=== PATIENT | male | born 1935 | race Caucasian/White ===

== ENCOUNTER → 2017-12-13 | Outpatient (CLI) | payer MEDICARE, OTHER ==
[~2017-12-13] MED LIST: ALBU90OI INH; AMOX1XR PO; ASPI81CH PO; ASPI81EC PO; Aspir 8181 MG PO; CALCA500CH PO; CEFU500 PO; CHEMO; CHLO2 PO; CHOL10002 PO; ERGO400 PO; ERGO50000 PO; FAMO20 PO; FLUSAL2505; FLUSAL2505 IH; HYDACE5 PO; HYDR1TAB94 PO; IMBRUVICA140 MG PO; LEVFLO500 PO; NAPR500 PO; OLME20 PO; RXHYDACE PO; SACC250C PO; TESTTP TOP; [UNRECOGNIZED DRUG - CODE]; [UNRECOGNIZED DRUG - REMARK]
[2017-12-13 09:12] LABS: BASOPHILS ABSOLUTE AUTO 0.08 K/mm3 (0.00-0.23); BASOPHILS PERCENT AUTO 1 % (0-2); EOSINOPHILS ABSOLUTE AUTO 0.03 K/mm3 (0.00-0.68); EOSINOPHILS PERCENT AUTO 0 % (0-6); Hematocrit 43.4 % (37.0-53.0); Hemoglobin 14.8 g/dL (13.5-17.5); IMMATURE GRAN ABSOLUTE AUTO 0.09 K/mm3 (0.00-0.10); IMMATURE GRAN PERCENT AUTO 1 % (0-1); LYMPHOCYTES ABSOLUTE AUTO 1.06 K/mm3 (0.84-5.20); LYMPHOCYTES PERCENT AUTO 11 % (21-46); MONOCYTES ABSOLUTE AUTO 1.02 K/mm3 (0.16-1.47); MONOCYTES PERCENT AUTO 11 % (4-13); Mean Corpuscular HGB 31.2 pg (26.0-34.0); Mean Corpuscular HGB Conc 34.1 g/dL (31.5-36.5); Mean Corpuscular Volume 91 fL (80-100); Mean Platelet Volume 11.7 fL (9.1-12.4); NEUTROPHILS ABSOLUTE AUTO 7.23 K/mm3 (1.96-9.15); NEUTROPHILS PERCENT AUTO 76 % (41-73); Platelet Count 223 K/mm3 (150-400); RDW Coefficient Variation 13.3 % (11.7-14.2); RDW Standard Deviation 45.3 fL (35.1-46.3); Red Blood Cell Count 4.75 M/mm3 (4.30-5.90); White Blood Cell Count 9.51 K/mm3 (4.00-11.30)
[2017-12-13 09:24] LABS: Anion Gap 8 mmol/L (6-16); Blood Urea Nitrogen 22 mg/dL (8-24); CO2, Blood 31 mmol/L (21-32); Calcium, Blood 8.7 mg/dL (8.5-10.1); Chloride, Blood 101 mmol/L (98-108); Glomerular Filtration Rate 32 (60-); Glucose, Blood 85 mg/dL (70-99); Potassium, Blood 3.6 mmol/L (3.5-5.5); Sodium, Blood 140 mmol/L (136-145); Troponin I <0.017 ng/mL (0.000-0.040)
== END | disposition home or self-care (01) ==
LOC: LAB SHORT 09:04 → LAB EV 09:04
PROVIDERS: Family Medicine
DX: R07.81 Pleurodynia (principal)
CPT/HCPCS: 80048; 83880; 84484; 85025; 85379

== ENCOUNTER → 2017-12-26 | Outpatient (CLI) | payer MEDICARE, OTHER | LOC: LAB SHORT 12:06 → PLD 12:06 | DX: D48.5 Neoplasm of uncertain behavior of skin (principal) | CPT/HCPCS: 88305 ==

== ENCOUNTER 2018-03-16 07:47 | Emergency (ER) | payer MEDICARE, OTHER ==
[~2018-03-16] VITALS: Ht 177.8 cm; Wt 77.1 kg
[2018-03-16] MEDS ORDERED: WARF5 PO (09:15)
[2018-03-16] MEDS ORDERED: METO25ER PO (09:15)
[2018-03-16] MEDS ORDERED: TRIA50 PO (09:15)
[2018-03-16 09:24] LABS: BASOPHILS ABSOLUTE AUTO 0.07 K/mm3 (0.00-0.23); BASOPHILS PERCENT AUTO 1 % (0-2); EOSINOPHILS ABSOLUTE AUTO 0.03 K/mm3 (0.00-0.68); EOSINOPHILS PERCENT AUTO 0 % (0-6); Hematocrit 38.9 % (37.0-53.0); IMMATURE GRAN ABSOLUTE AUTO 0.08 K/mm3 (0.00-0.10); IMMATURE GRAN PERCENT AUTO 1 % (0-1); LYMPHOCYTES ABSOLUTE AUTO 0.45 K/mm3 (0.84-5.20); LYMPHOCYTES PERCENT AUTO 5 % (21-46); MONOCYTES ABSOLUTE AUTO 1.27 K/mm3 (0.16-1.47); MONOCYTES PERCENT AUTO 15 % (4-13); Mean Corpuscular HGB Conc 33.4 g/dL (31.5-36.5); Mean Corpuscular Volume 87 fL (80-100); Mean Platelet Volume 11.4 fL (9.1-12.4); NEUTROPHILS ABSOLUTE AUTO 6.65 K/mm3 (1.96-9.15); NEUTROPHILS PERCENT AUTO 78 % (41-73); Platelet Count 268 K/mm3 (150-400); RDW Coefficient Variation 13.4 % (11.7-14.2); RDW Standard Deviation 42.6 fL (35.1-46.3); Red Blood Cell Count 4.48 M/mm3 (4.30-5.90); White Blood Cell Count 8.55 K/mm3 (4.00-11.30)
[2018-03-16 09:39] LABS: International Normalized Ratio 3.45; Prothrombin Time Results 33.1 Sec (9.7-11.5)
[2018-03-16 09:42] LABS: Albumin, Blood 2.5 g/dL (3.4-5.0); Albumin/Globulin Ratio 0.6 (0.8-1.8); Bilirubin, Total 0.7 mg/dL (0.1-1.0); Bun/Creatinine Ratio 12.1 (12.0-20.0); Calcium, Blood 8.1 mg/dL (8.5-10.1); Creatinine, Blood 1.9 mg/dL (0.60-1.20); Globulin, Blood 4.1 g/dL (2.2-4.0); Magnesium, Blood 2.4 mg/dL (1.6-2.4); Potassium, Blood 3.9 mmol/L (3.5-5.5); Total Protein, Blood 6.6 g/dL (6.4-8.2)
[2018-03-16] MEDS ORDERED: Lasix20 MG PO (14:20)
[2018-03-16] MEDS ORDERED: CORICIDIN HBP PO (14:20)
== END 2018-03-16 14:35 | disposition home or self-care (01) ==
LOC: ER 07:47
PROVIDERS: Emergency Medicine
DX: J90 Pleural effusion, not elsewhere classified (principal); Z79.899 Other long term (current) drug therapy; Z79.82 Long term (current) use of aspirin
CPT/HCPCS: 32555; 36415; 36430; 71045; 71046; 71250; 80053; 83735; 83880; 85025; 85610; 86900; 86901; 99284; J7030; P9059

== ENCOUNTER → 2018-03-27 | Outpatient (CLI) | payer MEDICARE, OTHER ==
[~2018-03-27] MED LIST changes: +CORICIDIN HBP PO; +Lasix20 MG PO; +METO25ER PO; +TRIA50 PO; +WARF5 PO
== END | disposition home or self-care (01) ==
LOC: LAB EV 08:40
DX: J44.1 Chronic obstructive pulmonary disease with (acute) exacerbation (principal)
CPT/HCPCS: 87070; 87205

== ENCOUNTER 2018-04-01 12:21 | Day surgery (SDC) | payer MEDICARE, OTHER ==
[2018-04-01 14:15] LABS: Automated BF RBC Count 0.278 M/mm3 (0-0); Automated BF WBC Count 0.812 K/mm3 (0-999); Body Fluid WBC Count 812 /mm3 (0-999); RBC Count, Body Fluid 278000 /mm3 (0-0)
[2018-04-01 14:22] LABS: Glucose, Body Fluid 92 mg/dL; Lactate Dehydrogenase, Body Fl 209 U/L; Protein, Body Fluid 3.8 g/dL
[2018-04-01 14:30] LABS: pH, Body Fluid 8.2
[2018-04-01 14:31] LABS: Appearance, Body Fluid Bloody (Clear); Color, Body Fluid Red (None-Yellow)
[2018-04-01 15:56] LABS: Total Cell Count, Body Fluid 100
== END 2018-04-01 14:14 | disposition home or self-care (01) ==
LOC: ORSCMMR 12:21 → ORD 12:30 → ORSCMMR 12:30
PROVIDERS: Internal Medicine Critical Care Medicine
PROC: 0W9B3ZZ Drainage of Left Pleural Cavity, Percutaneous Approach (ICD-10-PCS; principal; 2018-04-01 12:30)
DX: J90 Pleural effusion, not elsewhere classified (principal); I48.91 Unspecified atrial fibrillation; Z87.891 Personal history of nicotine dependence; Z79.899 Other long term (current) drug therapy
CPT/HCPCS: 71045; 82945; 83615; 83986; 84157; 88108; 88305; 89051

== ENCOUNTER → 2018-05-10 | Outpatient (CLI) | payer MEDICARE, OTHER | END | disposition home or self-care (01) | LOC: LAB EV 11:10 | DX: R05 Cough (principal) | CPT/HCPCS: 87070; 87205 ==

== ENCOUNTER 2019-08-20 06:56 | Day surgery (SDC) | payer MEDICARE, OTHER ==
[~2019-08-20] VITALS: Ht 177.8 cm; Wt 96.3 kg
[~2019-08-20 06:56] MED LIST changes: +Dyazide 37.5-21 EACH PO; +PANT40 PO; +THERA-D2000 UNIT PO; +Zocor20 MG PO
--- NOTE | 2019-08-20 07:41 | NUR ---
PT ADMITTED TO [facility]. AGREES WITH PLANNED PROCEDURE. LUNG SOUNDS CLEAR. STATED HE TOLERATED BOWEL PREP AND LAST BM CLEAR YELLOW. LEFT HEARING AID REMOVED. PLACED ON BEDSIDE TABLE IN CUP WITH PT LABEL.
--- NOTE | 2019-08-20 08:06 | NUR ---
08/20/19 0806 TRU SIDDIQUI History, Chart, Medications and Allergies reviewed before start of procedure.3-LEAD EKG REVIEWED WITH PHYSICIAN PRIOR TO START OF PROCEDURE.O2 VIA N/C INTACT THROUGHOUT SEDATION/PROCEDURE. PATIENT DETERMINED TO BE ASA APPROPRIATE FOR PROPOFOL SEDATION PRIOR TO START OF PROCEDURE BY
--- NOTE | 2019-08-20 08:49 | NUR ---
RECIEVED PATIENT AND REPORT FROM TRU SEGURA. PATIENT AWAKE AND TALKING TO STAFF VSS
--- NOTE | 2019-08-20 08:58 | NUR ---
RECIEVED PATIENT VS STABLE DENIES DRINK OR THIRST AWAKE AND TALKING
--- NOTE | 2019-08-20 09:06 | NUR ---
GETTING DRESSED AT THIS TIME REPORTS NO DIZZYNESS AND DENIES NEED FOR DRINK ASSISTING. DISCHARGED AND ESCORTED OUT IN WHEEL CHAIR BY RN.
== END 2019-08-20 23:10 | disposition home or self-care (01) ==
LOC: ORSCMMR 06:56 → ORD 08:00 → ORSCMMR 08:00
PROVIDERS: Internal Medicine Gastroenterology
PROC: 0DBH8ZX Excision of Cecum, Via Natural or Artificial Opening Endoscopic, Diagnostic (ICD-10-PCS; principal; 2019-08-20 08:00)
PROC: 0DBL8ZX Excision of Transverse Colon, Via Natural or Artificial Opening Endoscopic, Diagnostic (ICD-10-PCS; principal; 2019-08-20 08:00)
PROC: 0DBN8ZX Excision of Sigmoid Colon, Via Natural or Artificial Opening Endoscopic, Diagnostic (ICD-10-PCS; principal; 2019-08-20 08:00)
PROC: 0DBC8ZX Excision of Ileocecal Valve, Via Natural or Artificial Opening Endoscopic, Diagnostic (ICD-10-PCS; principal; 2019-08-20 08:00)
DX: K62.5 Hemorrhage of anus and rectum (principal); D12.3 Benign neoplasm of transverse colon; K64.8 Other hemorrhoids; Z80.0 Family history of malignant neoplasm of digestive organs; K21.9 Gastro-esophageal reflux disease without esophagitis; I48.91 Unspecified atrial fibrillation; E78.00 Pure hypercholesterolemia, unspecified; J44.9 Chronic obstructive pulmonary disease, unspecified; Z79.01 Long term (current) use of anticoagulants; Z79.899 Other long term (current) drug therapy
CPT/HCPCS: 88305; J2704; J7120

== ENCOUNTER 2019-09-17 09:27 | Emergency (ER) | payer MEDICARE, OTHER ==
[~2019-09-17] VITALS: Ht 177.8 cm; Wt 93.0 kg
[2019-09-17] MEDS ORDERED: FAMO20 (10:21)
[2019-09-17 10:35] LABS: BASOPHILS PERCENT AUTO 1 % (0-2); EOSINOPHILS ABSOLUTE AUTO 0.24 K/mm3 (0.00-0.68); EOSINOPHILS PERCENT AUTO 2 % (0-6); Hematocrit 45.9 % (37.0-53.0); Hemoglobin 15.1 g/dL (13.5-17.5); IMMATURE GRAN ABSOLUTE AUTO 0.05 K/mm3 (0.00-0.10); IMMATURE GRAN PERCENT AUTO 0 % (0-1); LYMPHOCYTES ABSOLUTE AUTO 2.67 K/mm3 (0.84-5.20); LYMPHOCYTES PERCENT AUTO 23 % (21-46); MONOCYTES ABSOLUTE AUTO 1.34 K/mm3 (0.16-1.47); MONOCYTES PERCENT AUTO 12 % (4-13); Mean Corpuscular HGB 29.4 pg (26.0-34.0); Mean Corpuscular HGB Conc 32.9 g/dL (31.5-36.5); Mean Corpuscular Volume 89 fL (80-100); Mean Platelet Volume 10.1 fL (9.1-12.4); NEUTROPHILS ABSOLUTE AUTO 7.27 K/mm3 (1.96-9.15); NEUTROPHILS PERCENT AUTO 62 % (41-73); Platelet Count 209 K/mm3 (150-400); RDW Coefficient Variation 13.2 % (11.7-14.2); RDW Standard Deviation 43.4 fL (35.1-46.3); Red Blood Cell Count 5.14 M/mm3 (4.30-5.90); White Blood Cell Count 11.67 K/mm3 (4.00-11.30)
[2019-09-17 10:47] LABS: Albumin, Blood 3.4 g/dL (3.4-5.0); Bilirubin, Total 0.8 mg/dL (0.1-1.0); Bun/Creatinine Ratio 16.2 (12.0-20.0); Calcium, Blood 8.8 mg/dL (8.5-10.1); Creatinine, Blood 1.79 mg/dL (0.60-1.20); Globulin, Blood 3.3 g/dL (2.2-4.0); Potassium, Blood 3.9 mmol/L (3.5-5.5); Total Protein, Blood 6.7 g/dL (6.4-8.2)
[2019-09-17 11:00] LABS: International Normalized Ratio 2.04; Prothrombin Time Results 20.3 Sec (9.7-11.5)
[2019-09-17] MEDS ORDERED: HYDACE25S PR (11:23)
== END 2019-09-17 11:49 | disposition home or self-care (01) ==
LOC: ER 09:27
PROVIDERS: Emergency Medicine
DX: K92.2 Gastrointestinal hemorrhage, unspecified (principal); I48.91 Unspecified atrial fibrillation; I50.9 Heart failure, unspecified; C91.11 Chronic lymphocytic leukemia of B-cell type in remission; Z79.01 Long term (current) use of anticoagulants
CPT/HCPCS: 36415; 80053; 85025; 85610; 85730; 86850; 86900; 86901; 93005; 93010; 99283-25

== ENCOUNTER → 2019-11-14 | Outpatient (CLI) | payer MEDICARE, OTHER ==
[~2019-11-14] MED LIST changes: +FAMO20; +HYDACE25S PR
[2019-11-14 10:30] LABS: Hematocrit 43.8 % (37.0-53.0); Hemoglobin 14.7 g/dL (13.5-17.5); Mean Corpuscular HGB 29.8 pg (26.0-34.0); Mean Corpuscular HGB Conc 33.6 g/dL (31.5-36.5); Mean Corpuscular Volume 89 fL (80-100); Mean Platelet Volume 10.6 fL (9.1-12.4); Platelet Count 193 K/mm3 (150-400); RDW Coefficient Variation 13.6 % (11.7-14.2); RDW Standard Deviation 44.1 fL (35.1-46.3); Red Blood Cell Count 4.93 M/mm3 (4.30-5.90); White Blood Cell Count 9.05 K/mm3 (4.00-11.30)
[2019-11-14 10:40] LABS: Albumin, Blood 3.4 g/dL (3.4-5.0); Bilirubin, Total 0.5 mg/dL (0.1-1.0); Bun/Creatinine Ratio 16.7 (12.0-20.0); Calcium, Blood 8.7 mg/dL (8.5-10.1); Creatinine, Blood 1.92 mg/dL (0.60-1.20); Globulin, Blood 3.4 g/dL (2.2-4.0); Potassium, Blood 4.1 mmol/L (3.5-5.5); Total Protein, Blood 6.8 g/dL (6.4-8.2)
[2019-11-14 11:23] LABS: International Normalized Ratio 1.83; Prothrombin Time Results 18.9 Sec (9.7-11.5)
[2019-11-14 11:41] LABS: BASOPHILS ABSOLUTE MAN 0.09 K/mm3 (0.00-0.23); BASOPHILS PERCENT MAN 1 % (0-2); EOSINOPHILS ABSOLUTE MAN 0.09 K/mm3 (0.00-0.68); EOSINOPHILS PERCENT MAN 1 % (0-6); LYMPHOCYTES ABSOLUTE MAN 3.34 K/mm3 (0.84-5.20); LYMPHOCYTES PERCENT MAN 37 % (21-46); MONOCYTES ABSOLUTE MAN 0.81 K/mm3 (0.16-1.47); MONOCYTES PERCENT MAN 9 % (4-13); SEG NEUTROPHILS PERCENT MAN 52 % (41-73); TOTAL CELLS COUNTED 100
== END | disposition home or self-care (01) ==
LOC: LAB SHORT 10:22 → LAB EV 10:22
PROVIDERS: Physician Assistant
DX: Z79.01 Long term (current) use of anticoagulants (principal); Z51.81 Encounter for therapeutic drug level monitoring; K92.2 Gastrointestinal hemorrhage, unspecified
CPT/HCPCS: 80053; 85025; 85610

== ENCOUNTER → 2020-03-18 | Outpatient (CLI) | payer MEDICARE, OTHER ==
[~2020-03-18] MED LIST changes: +OMEP20ER PO; +VENCLEXTA100 MG PO
== END | disposition home or self-care (01) ==
LOC: LAB SHORT 12:08 → PLD 12:08
DX: D04.39 Carcinoma in situ of skin of other parts of face (principal)
CPT/HCPCS: 88305

== ENCOUNTER → 2020-06-28 | Outpatient (CLI) | payer MEDICARE, OTHER | LOC: LAB SHORT 08:02 → PLD 08:02 | DX: C44.622 Squamous cell carcinoma of skin of right upper limb, including shoulder (principal); L82.1 Other seborrheic keratosis | CPT/HCPCS: 88305 ==

== ENCOUNTER → 2020-08-16 | Outpatient (CLI) | payer MEDICARE, OTHER | END | disposition home or self-care (01) | LOC: PLD 08:11 → LAB SHORT 08:11 | DX: D48.5 Neoplasm of uncertain behavior of skin (principal) | CPT/HCPCS: 88305 ==

== ENCOUNTER → 2020-12-21 | Outpatient (CLI) | payer MEDICARE, OTHER | LOC: LAB SHORT 11:02 | DX: D48.5 Neoplasm of uncertain behavior of skin (principal) | CPT/HCPCS: 88305 ==

== ENCOUNTER → 2021-01-26 | Outpatient (CLI) | payer MEDICARE, OTHER ==
[~2021-01-26] MED LIST changes: +CEFD300 PO; +XARELTO20 M1 PO
== END ==
LOC: LAB SHORT 08:34 → LAB 08:34
DX: R05 Cough (principal)
CPT/HCPCS: 87070; 87102; 87106; 87205

== ENCOUNTER 2021-02-05 19:34 | Emergency (ER) | payer MEDICARE, OTHER ==
[~2021-02-05] VITALS: Ht 177.8 cm; Wt 82.1 kg
[~2021-02-05 19:34] MED LIST changes: -CEFD300 PO; -XARELTO20 M1 PO
[2021-02-05] MEDS ORDERED: XARELTO20 M1 PO (20:48)
[2021-02-05 21:29] LABS: BASOPHILS ABSOLUTE AUTO 0.03 K/mm3 (0.00-0.23); BASOPHILS PERCENT AUTO 0 % (0-2); EOSINOPHILS PERCENT AUTO 0 % (0-6); Hemoglobin 13.6 g/dL (13.5-17.5); IMMATURE GRAN ABSOLUTE AUTO 0.06 K/mm3 (0.00-0.10); IMMATURE GRAN PERCENT AUTO 1 % (0-1); LYMPHOCYTES ABSOLUTE AUTO 0.51 K/mm3 (0.84-5.20); LYMPHOCYTES PERCENT AUTO 4 % (21-46); MONOCYTES ABSOLUTE AUTO 1.28 K/mm3 (0.16-1.47); MONOCYTES PERCENT AUTO 10 % (4-13); Mean Corpuscular HGB Conc 33.2 g/dL (31.5-36.5); Mean Corpuscular Volume 93 fL (80-100); Mean Platelet Volume 9.9 fL (9.1-12.4); NEUTROPHILS ABSOLUTE AUTO 11.18 K/mm3 (1.96-9.15); NEUTROPHILS PERCENT AUTO 86 % (41-73); Platelet Count 177 K/mm3 (150-400); RDW Coefficient Variation 13.1 % (11.7-14.2); RDW Standard Deviation 44.9 fL (35.1-46.3); Red Blood Cell Count 4.39 M/mm3 (4.30-5.90); White Blood Cell Count 13.06 K/mm3 (4.00-11.30)
[2021-02-05 21:49] LABS: Albumin, Blood 3.4 g/dL (3.4-5.0); Albumin/Globulin Ratio 1.1 (0.8-1.8); Bilirubin, Total 0.9 mg/dL (0.1-1.0); Bun/Creatinine Ratio 12.8 (12.0-20.0); Calcium, Blood 8.4 mg/dL (8.5-10.1); Creatinine, Blood 1.87 mg/dL (0.60-1.20); Globulin, Blood 3.2 g/dL (2.2-4.0); Potassium, Blood 3.9 mmol/L (3.5-5.5); Total Protein, Blood 6.6 g/dL (6.4-8.2)
[2021-02-05 22:18] LABS: Source, Urine Clean Catch
[2021-02-05 22:22] LABS: Bilirubin, Urine Neg (Neg); Blood, Urine 2+ (Neg); Glucose Qualitative, Urine Neg (Neg); Ketones, Urine Neg (Neg); Leukocyte Esterase, Urine Neg (Neg); Nitrite, Urine Neg (Neg); Protein, Urine Neg (Neg); Specific Gravity, Urine 1.005 (1.003-1.022); Urobilinogen, Urine NORM (Normal)
[2021-02-05 22:33] LABS: Appearance, Urine Clear (Clear); Color, Urine Yellow (P-Yellow)
[2021-02-05 22:34] LABS: Red Blood Cells, Urine 0-2 /hpf (0-2); White Blood Cells, Urine Not Seen /hpf (0-5)
[2021-02-05 22:35] LABS: Bacteria Not Seen /hpf; Squamous Epithelial Cells Not Seen /hpf (Few)
[2021-02-05] MEDS ORDERED: CEFD300 PO ×2 (22:54→23:06)
== END 2021-02-05 23:09 | disposition home or self-care (01) ==
LOC: ER 19:34
PROVIDERS: Emergency Medicine
DX: J18.9 Pneumonia, unspecified organism (principal); R41.0 Disorientation, unspecified; I48.91 Unspecified atrial fibrillation; I50.9 Heart failure, unspecified; Z79.01 Long term (current) use of anticoagulants; Z79.899 Other long term (current) drug therapy; Z87.891 Personal history of nicotine dependence
CPT/HCPCS: 36415; 71045; 80053; 81001; 84145; 85025; 93005; 93010; 96374; 99285-25; J0696

== ENCOUNTER 2021-12-29 09:50 | Emergency (ER) | payer MEDICARE, OTHER ==
[~2021-12-29] VITALS: Ht 177.8 cm; Wt 81.7 kg
[~2021-12-29 09:50] MED LIST changes: +CEFD300 PO; +XARELTO20 M1 PO
[2021-12-29] MEDS ORDERED: MIRALAX17 GM (10:12)
[2021-12-29] MEDS ORDERED: Flomax0.4 MG (10:12)
[2021-12-29] MEDS ORDERED: FLUT.05NI (10:12)
[2021-12-29] MEDS ORDERED: CLEM1.34 (10:13)
[2021-12-29 10:25] LABS: BASOPHILS ABSOLUTE AUTO 0.02 K/mm3 (0.00-0.23); BASOPHILS PERCENT AUTO 0 % (0-2); EOSINOPHILS PERCENT AUTO 0 % (0-6); Hematocrit 40.4 % (37.0-53.0); Hemoglobin 13.7 g/dL (13.5-17.5); IMMATURE GRAN ABSOLUTE AUTO 0.02 K/mm3 (0.00-0.10); IMMATURE GRAN PERCENT AUTO 0 % (0-1); LYMPHOCYTES ABSOLUTE AUTO 0.33 K/mm3 (0.84-5.20); LYMPHOCYTES PERCENT AUTO 6 % (21-46); MONOCYTES PERCENT AUTO 12 % (4-13); Mean Corpuscular HGB 32.5 pg (26.0-34.0); Mean Corpuscular HGB Conc 33.9 g/dL (31.5-36.5); Mean Corpuscular Volume 96 fL (80-100); Mean Platelet Volume 10.5 fL (9.1-12.4); NEUTROPHILS ABSOLUTE AUTO 4.63 K/mm3 (1.96-9.15); NEUTROPHILS PERCENT AUTO 81 % (41-73); Platelet Count 169 K/mm3 (150-400); RDW Standard Deviation 45.8 fL (35.1-46.3); Red Blood Cell Count 4.21 M/mm3 (4.30-5.90)
[2021-12-29 10:38] LABS: Albumin, Blood 3.3 g/dL (3.4-5.0); Bilirubin, Total 0.6 mg/dL (0.1-1.0); Bun/Creatinine Ratio 11.9 (12.0-20.0); Calcium, Blood 8.4 mg/dL (8.5-10.1); Creatinine, Blood 2.02 mg/dL (0.60-1.20); Globulin, Blood 3.3 g/dL (2.2-4.0); Magnesium, Blood 1.9 mg/dL (1.6-2.4); Total Protein, Blood 6.6 g/dL (6.4-8.2)
[2021-12-29 10:54] LABS: Source, Urine Clean Catch
[2021-12-29 11:04] LABS: Appearance, Urine Clear (Clear); Bilirubin, Urine Neg (Neg); Blood, Urine 4+ (Neg); Color, Urine Yellow (P-Yellow); Glucose Qualitative, Urine Neg (Neg); Ketones, Urine Neg (Neg); Leukocyte Esterase, Urine Neg (Neg); Nitrite, Urine Neg (Neg); Protein, Urine 1+ (Neg); Urobilinogen, Urine NORM (Normal)
[2021-12-29 11:18] LABS: Bacteria Rare /hpf; Hyaline Casts 0-2 /lpf (0-2); Red Blood Cells, Urine 0-2 /hpf (0-2); Squamous Epithelial Cells Rare /hpf (Few); White Blood Cells, Urine 0-2 /hpf (0-5)
[2021-12-29 11:28] LABS: Influenza A, PCR NEGATIVE (NEGATIVE); Influenza B, PCR NEGATIVE (NEGATIVE); Resp Syncytial Virus, PCR NEGATIVE (NEGATIVE)
[2021-12-29 11:36] LABS: SARS-Cov-2 (COVID-19) PCR, MMC POSITIVE (NEGATIVE)
[2021-12-29] MEDS ORDERED: ONDA4ODT MM (13:32)
[2021-12-29] MEDS ORDERED: Zithromax250 MG PO (13:33)
== END 2021-12-29 14:07 | disposition home or self-care (01) ==
LOC: ER 09:50
PROVIDERS: Emergency Medicine
DX: U07.1 COVID-19 (principal); J12.82 Pneumonia due to coronavirus disease 2019; Z88.2 Allergy status to sulfonamides; Z79.899 Other long term (current) drug therapy; I48.91 Unspecified atrial fibrillation; J44.0 Chronic obstructive pulmonary disease with (acute) lower respiratory infection; I11.0 Hypertensive heart disease with heart failure; I50.9 Heart failure, unspecified
CPT/HCPCS: 0241U; 36415; 70450; 71045; 73080; 80053; 81001; 83605; 83735; 85025; 93005; 93010; 99285-25; A9270

== ENCOUNTER → 2022-01-30 | Outpatient (CLI) | payer MEDICARE, OTHER ==
[~2022-01-30] MED LIST changes: +CLEM1.34; +FLUT.05NI; +Flomax0.4 MG; +MIRALAX17 GM; +ONDA4ODT MM; +Zithromax250 MG PO
[2022-01-30 12:32] LABS: BASOPHILS ABSOLUTE AUTO 0.01 K/mm3 (0.00-0.23); BASOPHILS PERCENT AUTO 0 % (0-2); EOSINOPHILS PERCENT AUTO 0 % (0-6); Hematocrit 37.2 % (37.0-53.0); Hemoglobin 12.5 g/dL (13.5-17.5); IMMATURE GRAN ABSOLUTE AUTO 0.05 K/mm3 (0.00-0.10); IMMATURE GRAN PERCENT AUTO 1 % (0-1); LYMPHOCYTES ABSOLUTE AUTO 0.29 K/mm3 (0.84-5.20); LYMPHOCYTES PERCENT AUTO 4 % (21-46); MONOCYTES ABSOLUTE AUTO 0.24 K/mm3 (0.16-1.47); MONOCYTES PERCENT AUTO 3 % (4-13); Mean Corpuscular HGB 31.5 pg (26.0-34.0); Mean Corpuscular HGB Conc 33.6 g/dL (31.5-36.5); Mean Corpuscular Volume 94 fL (80-100); Mean Platelet Volume 10.4 fL (9.1-12.4); NEUTROPHILS ABSOLUTE AUTO 6.43 K/mm3 (1.96-9.15); NEUTROPHILS PERCENT AUTO 92 % (41-73); Platelet Count 179 K/mm3 (150-400); RDW Standard Deviation 44.9 fL (35.1-46.3); Red Blood Cell Count 3.97 M/mm3 (4.30-5.90); White Blood Cell Count 7.02 K/mm3 (4.00-11.30)
[2022-01-30 12:41] LABS: Albumin, Blood 2.3 g/dL (3.4-5.0); Albumin/Globulin Ratio 0.5 (0.8-1.8); Bilirubin, Total 0.8 mg/dL (0.1-1.0); Bun/Creatinine Ratio 20.1 (12.0-20.0); Calcium, Blood 9.1 mg/dL (8.5-10.1); Creatinine, Blood 2.68 mg/dL (0.60-1.20); Globulin, Blood 4.7 g/dL (2.2-4.0); Potassium, Blood 3.7 mmol/L (3.5-5.5)
== END | disposition home or self-care (01) ==
LOC: LAB SHORT 12:30 → LAB 12:30
PROVIDERS: Family Medicine
DX: U07.1 COVID-19 (principal); J12.82 Pneumonia due to coronavirus disease 2019
CPT/HCPCS: 80053; 85025

== ENCOUNTER 2022-02-04 18:29 | Inpatient (IN) | payer MEDICARE, OTHER ==
[~2022-02-04] VITALS: Ht 175.3 cm; Wt 81.7 kg
[~2022-02-04 18:29] MED LIST changes: -CLEM1.34; +CLEM1.34 PO; -Flomax0.4 MG; +Flomax0.4 MG PO; -MIRALAX17 GM; +MIRALAX17 GM PO
[2022-02-04 18:52] LABS: BASOPHILS ABSOLUTE AUTO 0.02 K/mm3 (0.00-0.23); BASOPHILS PERCENT AUTO 0 % (0-2); EOSINOPHILS PERCENT AUTO 0 % (0-6); Hematocrit 41.8 % (37.0-53.0); Hemoglobin 13.8 g/dL (13.5-17.5); IMMATURE GRAN ABSOLUTE AUTO 0.11 K/mm3 (0.00-0.10); IMMATURE GRAN PERCENT AUTO 1 % (0-1); LYMPHOCYTES ABSOLUTE AUTO 0.15 K/mm3 (0.84-5.20); LYMPHOCYTES PERCENT AUTO 2 % (21-46); MONOCYTES ABSOLUTE AUTO 0.38 K/mm3 (0.16-1.47); MONOCYTES PERCENT AUTO 4 % (4-13); Mean Corpuscular HGB 30.9 pg (26.0-34.0); Mean Corpuscular Volume 94 fL (80-100); Mean Platelet Volume 12.8 fL (9.1-12.4); NEUTROPHILS ABSOLUTE AUTO 9.17 K/mm3 (1.96-9.15); NEUTROPHILS PERCENT AUTO 93 % (41-73); Platelet Count 225 K/mm3 (150-400); RDW Coefficient Variation 13.2 % (11.7-14.2); RDW Standard Deviation 45.1 fL (35.1-46.3); Red Blood Cell Count 4.47 M/mm3 (4.30-5.90); White Blood Cell Count 9.83 K/mm3 (4.00-11.30)
[2022-02-04 19:07] LABS: Alanine Aminotransfer (ALT/SGP 15 U/L (12-78); Albumin, Blood 2.2 g/dL (3.4-5.0); Albumin/Globulin Ratio 0.5 (0.8-1.8); Alk Phos 63 U/L (50-136); Anion Gap 7 mmol/L (6-16); Aspartate Aminotrans (AST/SGOT 30 U/L (12-37); Bilirubin, Total 0.7 mg/dL (0.1-1.0); Blood Urea Nitrogen 101 mg/dL (8-24); Bun/Creatinine Ratio 41.4 (12.0-20.0); CO2, Blood 24 mmol/L (21-32); Calcium, Blood 8.9 mg/dL (8.5-10.1); Chloride, Blood 119 mmol/L (98-108); Creatinine, Blood 2.44 mg/dL (0.60-1.20); Ethanol (Alcohol), Blood, Med <3 mg/dL; Globulin, Blood 4.1 g/dL (2.2-4.0); Glomerular Filtration Rate 25 (60-); Glucose, Blood 127 mg/dL (70-99); Potassium, Blood 4.7 mmol/L (3.5-5.5); Sodium, Blood 150 mmol/L (136-145); Total Protein, Blood 6.3 g/dL (6.4-8.2)
[2022-02-04 20:16] LABS: International Normalized Ratio 1.23; Prothrombin Time Results 12.7 Sec (9.7-11.5)
[2022-02-04 22:03] LABS: Source, Urine Condom Cath
[2022-02-04 22:08] LABS: Bilirubin, Urine Neg (Neg); Blood, Urine 1+ (Neg); Glucose Qualitative, Urine Neg (Neg); Ketones, Urine Neg (Neg); Leukocyte Esterase, Urine Neg (Neg); Nitrite, Urine Neg (Neg); Protein, Urine 2+ (Neg); Specific Gravity, Urine 1.015 (1.003-1.022); Urobilinogen, Urine NORM (Normal)
[2022-02-04 22:20] LABS: Amorphous Light (0-Heavy); Appearance, Urine Hazy (Clear); Bacteria Few /hpf; Color, Urine Yellow (P-Yellow); Granular Casts 25-50 /lpf (0); Red Blood Cells, Urine 0-2 /hpf (0-2); Squamous Epithelial Cells Not Seen /hpf (Few); White Blood Cells, Urine 0-2 /hpf (0-5)
[2022-02-04 22:21] LABS: U Amphetamine Screen Not Detected; U Barbituate Screen Not Detected; U Benzodiazapine Screen Not Detected; U Buprenorphine Screen Not Detected; U Cannabinoids Screen Not Detected; U Cocaine Screen Not Detected; U Methadone Screen Not Detected; U Methamphetamine Screen Not Detected; U Opiates Screen Not Detected; U Oxycodone Screen Not Detected; U Phencyclidine Screen Not Detected; U Propoxyphene Screen Not Detected
[2022-02-04 23:50] LABS: Influenza A, PCR NEGATIVE (NEGATIVE); Influenza B, PCR NEGATIVE (NEGATIVE); Resp Syncytial Virus, PCR NEGATIVE (NEGATIVE)
[2022-02-05 00:04] LABS: SARS-Cov-2 (COVID-19) PCR, MMC POSITIVE (NEGATIVE)
[2022-02-05 04:59] LABS: Bun/Creatinine Ratio 38.2 (12.0-20.0); Calcium, Blood 8.7 mg/dL (8.5-10.1); Creatinine, Blood 2.59 mg/dL (0.60-1.20); Potassium, Blood 3.8 mmol/L (3.5-5.5)
--- NOTE | 2022-02-05 06:47 | NUR ---
SHIFT SUMMARY PT WAS A NEW ADMIT DURING THE NIGHT, ARRIVING ON THE FLOOR AT 0058. HE IS AN 86 Y/O MALE, ADMITTED FOR ACUTE RESPIRATORY FAILURE AFTER HE WAS FOUND UNRESPONSIVE AT HOME. PT O2 NEEDS INCREASED FROM 2L TO 6L, WITH SHORT PERIODS OF DESATTING TO THE 80S. PT DID WAKE UP DURING THE NIGHT, AND WAS ABLE TO FOLLOW SIMPLE COMMANDS AND ANSWER YES OR NO QUESTIONS. PT IS A&O X SELF, VERY FORGETFUL AND [place]. CONDOM CATH PLACED AT ADMIT, THEN REMOVED BY THE PT THIS AM. 1PA TO BSC. NO C/O ACUTE PAIN OR DISTRESS. VITAL SIGNS STABLE. NO ACUTE CHANGES IN PT CONDITION NOTED DURING THE NIGHT. WILL CONTINUE TO MONITOR AND TREAT PER EMAR UNTIL HAND OFF TO DAY SHIFT RN.
--- NOTE | 2022-02-05 10:52 | NUR ---
Met with Pt's spouse Catherine and reviewed plan of care. Engaged in therapeutic discussion regarding advanced care planning, code status, and considering goals of care such as comfort care and hospice. Gentle education on disease process including trajectory of disease. Tamyy Catherine appeared to be in some denial but after continued conversation she appeared to be a little more accepting stating "that's what my daughter who has been a nurse for 30 years has been telling us". Offered therapeutic listening and answered questions. Discussed code status. Educated on life sustaining treatments including risk factors and implications of CPR. Catherine reports Pt completed an AD at [facility] and thinks his wishes are for DNR but would like to confirm this. Continued therapeutic conversation regarding goals of care including considering goals and values. Discussed focusing on comfort care and hospice as an option. Catherine reports she will have conversation with Pt and family regarding this. Confirmed with Dr Magana of Pt having an AD but does not have POLST. Catherine reports Pt would be in agreement with a code status of DNR. Continued therapeutic listening. Catherine reports she and Pt have 2 children, one daughter and one son. Catherine and Pt have been for 65 years this August. Catherine reports daughter's is fighting metastatic prostate cancer that has spread to the bone and possibly brain. Continued therapeutic listening. Ended visit to allow Catherine to visit with Pt. Spoke with Dr Magana and discussed case. Placed DNR order in [facility] per V/O from Dr Magana. Palliative Care will remain available for therapeutic visits.
--- NOTE | 2022-02-05 12:02 | NUR ---
ASPIRATION RISK PT APPEARED TO BE ASPIRATING SMALL AMOUNTS OF WATER WHEN HIS WAS HELPING HIM DRINK SOME WATER. AND PATIENT EDUCATED ON RISK OF ASPIRATION WHICH IS INCREASED WHEN THE PATIENT IS LAYING DOWN MOST OF THE WAY. PT STILL ON 6L O2 AT THIS TIME AND DOES NOT APPEAR TO BE IN ANY DISTRESS. WILL CTM
[2022-02-05 14:49] LABS: Albumin, Blood 1.9 g/dL (3.4-5.0); Albumin/Globulin Ratio 0.5 (0.8-1.8); Bilirubin, Total 0.7 mg/dL (0.1-1.0); Bun/Creatinine Ratio 37.8 (12.0-20.0); Calcium, Blood 8.6 mg/dL (8.5-10.1); Creatinine, Blood 2.46 mg/dL (0.60-1.20); Globulin, Blood 3.8 g/dL (2.2-4.0); Potassium, Blood 3.8 mmol/L (3.5-5.5); Total Protein, Blood 5.7 g/dL (6.4-8.2)
--- NOTE | 2022-02-05 18:19 | NUR ---
SHIFT NOTE PT CODE STATUS CHANGED TO DNR DURING THIS SHIFT. PT'S TALKED W/ DR MELGAR AND W/ PALLIATIVE CARE ABOUT PT'S CARE PLAN MOVING FORWARD. PT HAS SHOWN AN INCREASE IN STRENGTH AND RESPONSIVENESS THROUGHOUT THE SHIFT. PT IS ABLE TO STAND AND ROTATE TO BEDSIDE COMMODE W/ ONE PERSON ASSIST. PT IS EATING SMALL AMOUNTS OF FOOD AND ABLE TO DRINK SMALL AMOUNTS OF FLUID W/ 'S ASSISTANCE. PT IS AN ASPIRATION RISK DUE TO DYSPHAGIA. PT'S HAS BEEN ADVISED TO SIT PT UPRIGHT BEFORE PROVIDING ANY ORAL INTAKE. PT IS CURRENTLY RESTING IN ROOM, EATING DINNER W/ 'S ASSISTANCE. WILL CONTINUE TO MONITOR AND UPDATE NECESSARY.
[2022-02-05] MEDS ORDERED: PRED20 PO (19:53)
[2022-02-05] MEDS ORDERED: CARBIDOPA-LEVO1 EA21 PO (19:55)
--- NOTE | 2022-02-06 04:39 | NUR ---
PT A/0X2, ALERT TO SELF AND . PT VERY [place] WHEN ASKED WHERE HE WAS HE STATED HOME, UNSURE OF THE DATE. PT CONT/INCONT OF URINE. ENDORSED IN REPORT THAT PT WAS NOTED TO BE COUGHING WHEN EATING AND DRINKING. ST NOT ABLE TO ASSESS PT YET, PT MADE NPO UNTIL ST ABLE TO ASSESS PT. PT NOTED TO BE IMPULSIVE AT TIMES HOWEVER AT THIS TIME REDIRECTABLE. ON 5L O2 AND NOTED TO AT TIMES REMOVE. PT TURNED Q2H AT TIMES AND OTHERS REFUSED. NO OTHER CHANGES NOTED. PT REMAINED ON ISOLATION FOR COVID.
--- NOTE | 2022-02-06 08:00 | NUR ---
pt laying in bed, not very responsive to staff, speech is garbled, did figure out he needed to void and was able to place the urinal for him, speech in room doing an eval, he will be npo at this time, he sounds wet, weak cough effort, confused, but attempts to be cooperative with care, lungs are dim t/o, resp even and unlabored at rest, currently on 5 liters 02 via n/c, hrir, no edema ntoed, ppp faint, cap refill<3sec, vs stable afebrile, iv site is clear and patent, infusing d51/2 at this time, will stop after this liter, btx4, abd flat soft nontender, voids via urinal and incont, attends in place, skin c/w/d weak, call light in reach.
[2022-02-06 08:01] LABS: BASOPHILS ABSOLUTE AUTO 0.02 K/mm3 (0.00-0.23); BASOPHILS PERCENT AUTO 0 % (0-2); EOSINOPHILS PERCENT AUTO 0 % (0-6); Hematocrit 40.9 % (37.0-53.0); Hemoglobin 12.5 g/dL (13.5-17.5); IMMATURE GRAN ABSOLUTE AUTO 0.11 K/mm3 (0.00-0.10); IMMATURE GRAN PERCENT AUTO 1 % (0-1); LYMPHOCYTES ABSOLUTE AUTO 0.15 K/mm3 (0.84-5.20); LYMPHOCYTES PERCENT AUTO 2 % (21-46); MONOCYTES ABSOLUTE AUTO 0.15 K/mm3 (0.16-1.47); MONOCYTES PERCENT AUTO 2 % (4-13); Mean Corpuscular HGB Conc 30.6 g/dL (31.5-36.5); Mean Corpuscular Volume 98 fL (80-100); Mean Platelet Volume 11.4 fL (9.1-12.4); NEUTROPHILS ABSOLUTE AUTO 8.31 K/mm3 (1.96-9.15); NEUTROPHILS PERCENT AUTO 95 % (41-73); Platelet Count 131 K/mm3 (150-400); RDW Coefficient Variation 13.5 % (11.7-14.2); RDW Standard Deviation 48.5 fL (35.1-46.3); Red Blood Cell Count 4.16 M/mm3 (4.30-5.90); White Blood Cell Count 8.74 K/mm3 (4.00-11.30)
[2022-02-06 08:28] LABS: Albumin, Blood 1.7 g/dL (3.4-5.0); Blood Urea Nitrogen 73 mg/dL (8-24); Bun/Creatinine Ratio 35.8 (12.0-20.0); CO2, Blood 26 mmol/L (21-32); Calcium, Blood 8.4 mg/dL (8.5-10.1); Chloride, Blood 131 mmol/L (98-108); Creatinine, Blood 2.04 mg/dL (0.60-1.20); Glomerular Filtration Rate 31 (60-); Glucose, Blood 123 mg/dL (70-99); Phosphorus, Blood 2.9 mg/dL (2.5-4.9); Potassium, Blood 3.5 mmol/L (3.5-5.5)
[2022-02-06 08:30] LABS: Anion Gap 6 mmol/L (6-16); Sodium, Blood 163 mmol/L (136-145)
--- NOTE | 2022-02-06 11:12 | NUR ---
pt has been transitioned to comfort care, Dr. Magana ordered a duragesic patch, but state he hasn't ever complained of pain, she would like to hold off for now, will place it if he shows signs of pain later, call light in reach.
--- NOTE | 2022-02-06 16:05 | NUR ---
pt has been relaxed this shift, no signs of distress, spouce in room, she doesn't want a comfort cart, states she will let us know if any needs, pt is being turned and changed as needed. call light in reach.
--- NOTE | 2022-02-06 16:54 | NUR ---
Case Conference: Met with pt's Catherine this afternoon after her friends and wrapper hand left. Pt is lying in bed, up aroung a 40 degree angle. Catherine states she is ready to go home for the night. Gave her a copy of "Hard choices for [place] People". She does understand what comfort care is. She has not decided yet if the pt will be placed on comfort Care. But she does state she knows she can't take care of him any longer at home. Palliative to remain involved.
--- NOTE | 2022-02-06 18:26 | NUR ---
pt has been quietly resting in bed, has been awake, mouth swabbed throughout the day. no acute changes this shift. call light in reach.
--- NOTE | 2022-02-06 21:13 | NUR ---
[place] 65 years with covid 19 pneumonia changed to comfort care today. on 5 l nc. personal care done denies acute needs.
--- NOTE | 2022-02-06 23:19 | NUR ---
denies pain or anxiety. Personal care complete continues in isolation for ciovid 19 pneumonia
--- NOTE | 2022-02-07 06:41 | NUR ---
86 year old Male with covid 19 was changed to comfort care yesterday. He has repeatedly removed his oxygen so currently appears hypoxic & dusky but comfortable. Medicated for pain x 2 with 10 mg roxinol sl with helpful effect. incontinent of urine several times turned side to side repositioned. Continues on comfort care.
--- NOTE | 2022-02-07 08:47 | NUR ---
PT RESTING COMFORTABLEY IN BED. IS PRESENT AND VISITING WITH PT.
--- NOTE | 2022-02-07 10:36 | NUR ---
PT WAS GIVEN MORPHRINE, REPOSTIONED AND BRIEF CHANGED. PT RECEVIED MOUTH CARE. PT RESTING BIN BED WITH PRESENT.
--- NOTE | 2022-02-07 12:19 | NUR ---
PT HAD A TENSE EXPRESSION. PT WAS GIVEN ATIVAN 1MG IV. APPLIED LOTION TO THE PT FEET AND ARMS. PT RESTING IN BED.
--- NOTE | 2022-02-07 14:16 | NUR ---
Comfort Care Visit Pt resting in bed upon arrival. Pt is non verbal. Pt appears frail and weak. Facial expressions and body posture appear tense suggusting possible discomfort. Pt's spouse Catherine at bedside. Catherine expresses concerns regarding medications. Gentle education on the importance of comfort. Reviewed comfort medications and S/S Pt is experiencing. Catherine appears to be in agreement with offering comfort medication. Spoke with Primary RN and Tile Trimmer. Discussed case and reviewed comfort medications. Palliative Care will remain available.
--- NOTE | 2022-02-07 14:56 | NUR ---
PT WAS REPOSITIONED, CHANGED, AND GIVEN PAIN MEDICATION ACCORDING TO THE EMAR PROTOCOL. PT'S IS PRESENTING AND AT BEDSIDE WITH PT THROUGHOUT SHIFT.
--- NOTE | 2022-02-07 16:33 | NUR ---
pt was repostioned to supine. pt is resting in bed. pt become anxious on movement. pt has settled once we placed him in supine postion.
--- NOTE | 2022-02-07 18:00 | NUR ---
SHIFT SUMMARY PT RESTING QUIETLY AT START OF SHIFT, NO S/SX OF DISTRESS NOTED OR REPORTED. PT PLACED ON COMFORT CARE YESTERDAY. MEDICATED PER EMAR PRIOR TO START OF SHIFT. PT REPOSITIONED THRU OUT THE DAY FOR COMFORT WELL BEING MEDICATED FOR PAIN AND ANXIETY. PT'S BS MOST OF THE DAY, GOING HOME FOR ONLY A LITTLE WHILE. RETURNED TO SPEND THE NIGHT. PT IN ISOLATION FOR COVID. REQUESTED PT TO GO TO [place] [facility] WHEN HE PASSES. WILL CONTINUE TO MONITOR.
--- NOTE | 2022-02-07 18:21 | NUR ---
PT WAS RESTING COMFORTABLEY IN THE BEGINNING OF THE SHIFT. PT BECAME AGIATED AFTER BEING REPOSITIONED AND HIS BREIF CHANGED. PT WAS GIVEN MORPHINE PER EMAR PROTOCOL. PT WAS REPOSTIONED AND ASSESSED Q2HRS. PT WAS GIVEN MORPHINE AND ATIVAN DURING LUNCH TIME. PT RESPIRATIONS INCREASED AND HAD FACICAL GRIMICING. PT WAS GIVEN MORPHINE AND HALDIOL TOWARDS THE END OF THE SHIFT DUE TO INCREASE RESPIRATIONS AND GROANING. PT HAS BEEN AT BEDSIDE THROUGHOUT THE SHIFT AND PLANS ON SPENDING THE NIGHT WITH PT. PT IS RESTING IN BED.
--- NOTE | 2022-02-07 22:24 | NUR ---
Catherine 67 years at bedside& discussing vocation & travel. 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 Has a Son & DTR. Retired with to [place] due to family in area. Covid 19 vaccinated & booster but hx of current CLL hx of other cancers. Had medicated for pain air hunger with ativan 1 mg IV & roxanol 20 mg sl with helpful effect. PT had repeatedly removed oxygen mottled but warm PT nonverbal.
== END 2022-02-07 23:01 | DRG 177 ==
LOC: ER 18:29 → MEDS 02-05 00:50
PROVIDERS: Emergency Medicine; Family Medicine; ADMIT Hospitalist
PROC: 8E0ZXY6 Isolation (ICD-10-PCS; principal; 2022-02-05)
PROC: 3E03329 Introduction of Other Anti-infective into Peripheral Vein, Percutaneous Approach (ICD-10-PCS; 2022-02-05)
DX: J69.0 Pneumonitis due to inhalation of food and vomit (principal); U07.1 COVID-19; J96.01 Acute respiratory failure with hypoxia; C91.10 Chronic lymphocytic leukemia of B-cell type not having achieved remission; E87.0 Hyperosmolality and hypernatremia; J44.0 Chronic obstructive pulmonary disease with (acute) lower respiratory infection; N17.9 Acute kidney failure, unspecified; I13.0 Hypertensive heart and chronic kidney disease with heart failure and stage 1 through stage 4 chronic kidney disease, or unspecified chronic kidney disease; R64 Cachexia; Z66 Do not resuscitate; Z88.2 Allergy status to sulfonamides; Z51.5 Encounter for palliative care; Z86.16 Personal history of COVID-19; Z85.53 Personal history of malignant neoplasm of renal pelvis; Z90.5 Acquired absence of kidney; Z86.73 Personal history of transient ischemic attack (TIA), and cerebral infarction without residual deficits; Z79.01 Long term (current) use of anticoagulants; I48.91 Unspecified atrial fibrillation; Z98.890 Other specified postprocedural states; Z87.891 Personal history of nicotine dependence; Z79.899 Other long term (current) drug therapy; E86.0 Dehydration; R62.7 Adult failure to thrive; Z85.828 Personal history of other malignant neoplasm of skin; I50.9 Heart failure, unspecified; N18.30 Chronic kidney disease, stage 3 unspecified; J44.9 Chronic obstructive pulmonary disease, unspecified
CPT/HCPCS: 0241U; 31720; 36415; 70450; 71045; 80048; 80053; 80069; 81001; 83605; 84484; 85025; 85610; 92610; 93005; 93010; 94640; 94664; 94760; 96361; 96365; 96375; 97110; 97162; 97530; 99285-25; A9270; G0480; J0456; J0696; J1630; J1644; J2060; J7030; J7042; J7050; J7060